=== PATIENT | female | born 1950 | race African-American/Black ===

== ENCOUNTER → 2020-04-24 | Outpatient (CLI) | payer BC ==
--- NOTE | 2020-04-24 15:21 | CARD ---
MR#: [id number] Date of Study: 04/24/2020 Ordering Physician: FRANNY PAINTING, Referring Physician: FRANNY PAINTING Tech: Gunjan Funes RDCS APPROVED REPORT EXAM: Two-dimensional and M-mode echocardiogram with Doppler and color Doppler. Other Information Quality : Good INDICATION History Pulmonary Embolism, Evaluate Right Heart 2D DIMENSIONS RVDd2.6 (2.9-3.5cm)Left Atrium(2D)3.8 (1.6-4.0cm) IVSd0.9 (0.7-1.1cm)Aortic Root(2D)3.2 (2.0-3.7cm) LVDd5.5 (3.9-5.9cm)LVOT Diameter2.1 (1.8-2.4cm) PWd1.0 (0.7-1.1cm)LVDs3.4 (2.5-4.0cm) FS (%) 37.4 %SV97.5 ml LVEF(%)66.9 (>50%) Aortic Valve AoV Peak Jose Cruz.144.3cm/sAoV VTI26.0cm AO Peak GR.8.3mmHgLVOT Peak Jose Cruz.121.7cm/s AO Mean GR.4mmHgAVA (VMAX)2.79cm2 GINGER (VTI)3.30cm2 Mitral Valve MV E Jpjgihne24.7cm/sMV DECEL [id number] MV A Novkhjav33.7cm/sE/A Ratio0.7 Pulmonary Vein S1 Tgobegat14.7cm/sD2 Atzffkbx14.2cm/s LEFT VENTRICLE The left ventricle is normal size. There is normal left ventricular wall thickness. The left ventricu lar systolic function is normal. The Ejection Fraction is 55-60%. There is normal LV segmental wall m otion. Transmitral Doppler flow pattern is Grade I-abnormal relaxation pattern. RIGHT VENTRICLE The right ventricle is normal size. The right ventricular systolic function is normal. ATRIA The left atrium size is normal. The right atrium size is normal. The interatrial septum is intact wit h no evidence for an atrial septal defect or patent foramen ovale as noted on 2-D or Doppler imaging. AORTIC VALVE The aortic valve is calcified but opens well. Doppler and Color Flow revealed no significant aortic r egurgitation. There is no significant aortic valvular stenosis. MITRAL VALVE The mitral valve is calcified but opens well. There is no evidence of mitral valve prolapse. There is no mitral valve stenosis. Doppler and Color Flow revealed no mitral valve regurgitation noted. TRICUSPID VALVE The tricuspid valve is normal in structure and function. Doppler and Color Flow revealed no tricuspid valve regurgitation noted. There is no tricuspid valve stenosis. PULMONIC VALVE The pulmonic valve is not well visualized. Doppler and Color Flow revealed mild pulmonic valvular reg urgitation. There is no pulmonic valvular stenosis. GREAT VESSELS The aortic root is normal in size. The ascending aorta is mildly dilated at 3.5 cm. The IVC is normal in size and collapses >50% with inspiration. PERICARDIAL EFFUSION There is no evidence of significant pericardial effusion. Critical Notification Critical Value: No <Conclusion> The left ventricular systolic function is normal. The Ejection Fraction is 55-60%. There is normal LV segmental wall motion. Transmitral Doppler flow pattern is Grade I-abnormal relaxation pattern. There is no evidence of significant pericardial effusion. Signed by : Jono Amador, Electronically Approved : 04/24/2020 15:20:38
== END | disposition home or self-care (01) ==
LOC: ECHO 12:47
PROVIDERS: ATTEND Family Medicine
DX: I08.8 Other rheumatic multiple valve diseases (principal); Z86.711 Personal history of pulmonary embolism
CPT/HCPCS: 93306

== ENCOUNTER → 2020-07-04 | Outpatient (CLI) | payer BC | LOC: ONCLAB 11:46 | PROVIDERS: ATTEND Internal Medicine Hematology & Oncology | DX: I26.92 Saddle embolus of pulmonary artery without acute cor pulmonale (principal) | CPT/HCPCS: 81240; 81241; 85300; 85302; 85306 ==

== ENCOUNTER → 2020-11-06 | Outpatient (CLI) | payer OTHER ==
--- NOTE | 2020-11-06 09:05 | KCIC ---
EXAM: CT CORONARY CALCIUM SCORING. HISTORY: Coronary risk factors. Calcium scoring is requested. Family history of coronary disease, hyp erlipidemia. COMPARISON: None. FINDINGS: Limited noncontrast CT of the chest was performed for coronary calcium scoring. Refer to e worksheets for full detail. *One or more of the following individualized dose reduction techniques were utilized for this examination: 1. Automated exposure control. 2. Adjustment of the mA and/or kV according to patient size. 3. Use of iterative reconstruction technique. Coronary calcium scoring is as follows: LMA: 0. LAD: 0. LCX: 0. RCA: 0. PDA: 0. Total: 0. The included portions of the chest reveal the following. Bone windows reveal no suspicious lesions. I mages of the upper abdomen reveal a small hiatal hernia. There are no pathologically enlarged mediastinal lymph nodes. Calcified mediastinal lymph nodes are l ikely secondary to old granulomatous disease. There is no pleural or pericardial effusion. The heart is not enlarged. There is mild dependent atelectasis. IMPRESSION: 1. Coronary calcium score 0. 2. Small hiatal hernia. Electronically signed by: Shaina Dumont MD (11/06/2020 9:03 AM) [id number]
== END ==
LOC: KCIC CT 08:36
PROVIDERS: ATTEND Family Medicine
DX: E78.5 Hyperlipidemia, unspecified (principal); K44.9 Diaphragmatic hernia without obstruction or gangrene; Z86.79 Personal history of other diseases of the circulatory system
CPT/HCPCS: 75571